=== PATIENT | male | born 1995 | race African-American/Black ===

== ENCOUNTER 2016-06-15 13:49 | Emergency (ER) | payer OTHER ==
--- NOTE | ~2016-06-15 | US113 ---
[facility] A Service of [facility] RADIOLOGY TEXT RESULTS PATIENT: DERIAN SCHULZ LOCATION: [facility] : [birth year] UNIT #: [id number] AGE: [address]: HELGA TURPIN SEX: M ORDER DR: [id number] [facility] [address] [place], [place] [address] [id number] E MR#: [id number] Acc #: [id number] NAME: DERIAN SCHULZ : 1995 SEX: M STUDY DATE/TIME: 06/15/2016 15:00 UNIT: [facility] ROOM: STUDY DESCRIPTION: US Scrotal Duplex Complete Attending Physician: Helga Turpin Aprn Ordering Physician: Ed Doctor [id number] [facility] Primary Care Physician: Generic Doctor Not In System MEDICAL IMAGING REPORT This report is preliminary unless electronic signature is present EXAM Scrotal ultrasound INDICATIONS Left-sided testicular and inguinal lumps. 2 week duration. FINDINGS The right testicle measures 4 x 2.3 x 3.2 cm. The right testicle measures 2.9 x 2.3 x 4 cm. Echogenicity and echotexture of the testicles are normal. There is no testicular mass. Color Doppler flow to the testicles are normal. Both epididymi are normal. There is trace left hydrocele. No discrete mass or lesions identified. The escalator service mechanic raised the question of a possible inguinal hernia, however, this cannot be confirmed. Consider further evaluation of a CT of the pelvis. IMPRESSION 1. Normal appearance of the testicles. 2. Small left hydrocele. 3. Question of a small inguinal hernia. If symptoms relate to an inguinal hernia, consider further evaluation with a CT. Dictated by... Vlad Barnett M.D. THIS IS AN ELECTRONICALLY VERIFIED REPORT Vlad Barnett M.D. at 06/16/2016 2:14 PM C/to TD: 06/15/2016 20:37 JOB #: [id number] MEDICAL IMAGING REPORT [facility] A Service of [facility] RADIOLOGY TEXT RESULTS PATIENT: DERIAN SCHULZ LOCATION: [facility] : 95 UNIT #: [id number] AGE: [address]: HELGA TURPIN SEX: M ORDER DR: Page 1 of 1 COPY
[2016-06-15 14:14] LABS: URINE SOURCE CLEAN CATCH
[2016-06-15 14:23] LABS: URINE APPEARANCE CLEAR; URINE BILIRUBIN NEG (NEG); URINE BLOOD NEG (NEG); URINE COLOR YELLOW; URINE GLUCOSE NEG (NEG); URINE KETONE TRACE (NEG); URINE LEUKOCYTE ESTERASE NEG (NEG); URINE NITRATE NEG (NEG); URINE PH 5.5 (5-8); URINE PROTEIN NEG (NEG); URINE SPECIFIC GRAVITY 1.028 (1.003-1.035); URINE UROBILINOGEN 0.2 MG/DL (NEG)
[2016-06-15 14:28] LABS: CULTURE INDICATED? NO
[2016-06-18 10:23] LABS: CHLAMYDIA TRACH Not Detected (Not Detected); N GONOR Not Detected (Not Detected)
== END 2016-06-15 16:45 | disposition home or self-care (01) ==
LOC: CED 13:49
PROVIDERS: Nurse Practitioner Family
DX: N50.89 Other specified disorders of the male genital organs (principal); J45.909 Unspecified asthma, uncomplicated; F17.210 Nicotine dependence, cigarettes, uncomplicated
CPT/HCPCS: 81003; 87491; 87591; 93975; 96372; 99284; J0696

== ENCOUNTER 2016-09-29 11:11 | Emergency (ER) | payer OTHER ==
[~2016-09-29] VITALS: Ht 172.7 cm; Wt 79.8 kg
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
== END 2016-09-29 13:13 | disposition home or self-care (01) ==
LOC: CED 11:11 → CFTX 11:11 → CED 11:48
DX: S06.0X9A Concussion with loss of consciousness of unspecified duration, initial encounter (principal); S00.81XA Abrasion of other part of head, initial encounter; F17.200 Nicotine dependence, unspecified, uncomplicated; V29.40XA Motorcycle driver injured in collision with unspecified motor vehicles in traffic accident, initial encounter; Y92.488 Other paved roadways as the place of occurrence of the external cause
CPT/HCPCS: 70450; 99284

== ENCOUNTER 2016-10-17 13:36 | Emergency (ER) | payer OTHER ==
[~2016-10-17] VITALS: Ht 172.7 cm; Wt 79.4 kg
--- NOTE | ~2016-10-17 | US115 ---
[facility] A Service of [facility] RADIOLOGY TEXT RESULTS PATIENT: DERIAN SCHULZ LOCATION: [facility] : 95 UNIT #: [id number] AGE: [address]: Amparo Briceño APRN SEX: M ORDER DR: [id number] [facility] [address] [place], [place] [address] [id number] E MR#: [id number] Acc #: [id number] NAME: DERIAN SCHULZ : 1995 SEX: M STUDY DATE/TIME: 10/17/2016 14:48 UNIT: [facility] ROOM: STUDY DESCRIPTION: US Scrotum and Contents Attending Physician: Amparo Briceño A.P.R.N. Ordering Physician: [facility] MEDICAL IMAGING REPORT This report is preliminary unless electronic signature is present EXAM Scrotal Doppler ultrasound imaging HISTORY Lumps on left testicle for 1 day. Sharp pain at work today. FINDINGS The scrotal contents were evaluated with bauer-scale imaging, color flow Doppler. The right testicle is 4.1 x 1.9 x 3.2 cm. There is normal echotexture and normal flow. The epididymis is normal. The left testicle is 3.8 x 1.8 x 3.2 cm. There is normal echotexture and normal flow. Imaging over the area of "lumps" was performed and no abnormalities were identified. The left epididymis appears normal. IMPRESSION 1. Study appears normal. No abnormality can be identified in the area where the patient states he is feeling lumps. Certainly, both testicles are normal with normal flow. The epididymides appear normal. There is no hydrocele or varicocele identified. Dictated by... Gorge Jackson M.D. THIS IS AN ELECTRONICALLY VERIFIED REPORT Gorge Jackson M.D. at 10/18/2016 6:07 AM MARGARITA/trevor TD: 10/17/2016 20:51 JOB #: [id number] [facility] A Service of [facility] RADIOLOGY TEXT RESULTS PATIENT: DERIAN SCHULZ LOCATION: [facility] : 95 UNIT #: [id number] AGE: [address]: Amparo Briceño APRN SEX: M ORDER DR: MEDICAL IMAGING REPORT Page 1 of 1 COPY
[2016-10-17 14:56] LABS: URINE SOURCE CLEAN CATCH
[2016-10-17 15:03] LABS: URINE APPEARANCE CLEAR; URINE BILIRUBIN NEG (NEG); URINE BLOOD NEG (NEG); URINE COLOR YELLOW; URINE GLUCOSE NEG (NEG); URINE KETONE TRACE (NEG); URINE LEUKOCYTE ESTERASE NEG (NEG); URINE NITRATE NEG (NEG); URINE PH 7.5 (5-8); URINE PROTEIN NEG (NEG); URINE SPECIFIC GRAVITY 1.025 (1.003-1.035)
[2016-10-17 15:12] LABS: CULTURE INDICATED? NO
[2016-10-21 10:59] LABS: CHLAMYDIA TRACH Not Detected (Not Detected); N GONOR Not Detected (Not Detected)
== END 2016-10-17 15:40 | disposition home or self-care (01) ==
LOC: CED 13:36 → CFTX 13:36
PROVIDERS: Nurse Practitioner
DX: N50.812 Left testicular pain (principal); Z87.891 Personal history of nicotine dependence
CPT/HCPCS: 76870; 81003; 87491; 87591; 99284